=== PATIENT | male | born 1965 | race Caucasian/White ===

== ENCOUNTER → 2024-11-13 | Day surgery (SDC) | payer BC ==
[~2024-11-13] MED LIST: ACETAMINOPHEN TAB 325 MG TAB PO PRN; HYDROcodone/APAP 5-325MG 1 EACH TAB PO PRN; KETOROLAC 15 MG/ML 1 ML VIAL ONE; LIDOCAINE 1% INJ 10MG/ML (20 ML MDV) ONE; MIDAZOLAM 2 MG/2 ML VIAL ONE; NALOXONE 0.4 MG/ML 1 ML VIAL IV PRN; PROPOFOL 10 MG/ML 20 ML VIAL IV ONE; Pre Op ABX Message 1 EACH MISC MISCELLANE ONE; SUCCINYLCHOLINE CHLORIDE 200 MG/10 ML VIAL IV ONE; fentaNYL (PF) 50 MCG/ML 2 ML AMP ONE
--- NOTE | 2024-11-13 12:22 | P.GSHP ---
History of Present Illness H&P Date: 11/13/24 Chief Complaint: Back and arm lipoma 58-year-old male here for elective excision right back and right arm lipoma. Patient last seen in the office June of last year. Has had a mass in the right upper back for the last 7 years or so. Increasing in size. Mild soreness at ti mes. No overlying skin changes. Patient also has a smaller mass in the right arm region. Past Medical History Past Medical History: Cancer, Diabetes Mellitus, Hyperlipidemia, Hypertension Additional Past Medical History / Comment(s): Type 2 diab., hx. skin cancer History of Any Multi-Drug Resistant Organisms: None Reported Additional Past Surgical History / Comment(s): cancer removed from tip of left middle finger, cyst removed from scrotum, cyst removed from neck Past Anesthesia/Blood Transfusion Reactions: No Reported Reaction Smoking Status: Never smoker - Past Family History Mother Family Medical History: No Reported History Medications and Allergies Home Medications Medication Instructions Recorded Confirmed Type Aspirin 81 mg PO 0900 11/12/24 11/12/24 History Atorvastatin [Lipitor] 20 mg PO QAM 11/12/24 11/12/24 History Insulin Glargine,Hum.rec.anlog 10 units SQ HS 11/12/24 11/12/24 History [Lantus Solostar Pen] Insulin Regular, Human [NovoLIN R] See Protocol SQ AC-TID 11/12/24 11/12/24 History Metoprolol Tartrate 25 mg PO QAM 11/12/24 11/12/24 History Sildenafil [Revatio] 20 mg PO DIRECTED PRN 11/12/24 11/12/24 History glipiZIDE [Glucotrol] 20 mg PO AC-BID 11/12/24 11/12/24 History lisinopriL [Zestril] 20 mg PO 0900 11/12/24 11/12/24 History metFORMIN HCL [Glucophage] 1,000 mg PO BID 11/12/24 11/12/24 History Allergies Allergy/AdvReac Type Severity Reaction Status Date / Time No Known Allergies Allergy Verified 11/12/24 08:59 Surgical - Exam Physical exam: General: Well-developed, well-nourished HEENT: Normocephalic, sclerae nonicteric Abdomen: Nontender, nondistended Extremities: No edema, right upper back with 10 cm subcutaneous lipomatous mass, right arm with 3 x 3 cm mass Neuro: Alert and oriented Assessment and Plan (1) Lipoma of back Narrative/Plan: Will proceed with surgical excision right upper back and right arm lipomatous masses. Risks of bleeding, infection, scarring, numbness, seroma, recurrence. He understands and wishes to proceed. Current Visit: Yes Status: Acute Code(s): D17.1 - BENIGN LIPOMATOUS NEOPLASM OF SKIN, SUBCU OF TRUNK SNOMED Code(s): 289504031
[2024-11-13 12:46] VITALS: TEMP 96.8
[2024-11-13] MEDS: IV FLUID CONTINUATION 1,000 ML IV ONE (12:52)
[2024-11-13] MEDS: LACTATED RINGERS 1,000 ML IV SCH (13:01)
[2024-11-13] MEDS: ACETAMINOPHEN TAB 500 MG TAB PO PRN (13:02)
[2024-11-13] MEDS: ONDANSETRON 4 MG/2 ML VIAL IVP STA (13:03)
[2024-11-13] MEDS: HEPARIN SODIUM,PORCINE 5,000 UNIT/ML 1 ML VIAL SQ PRN (13:04)
[2024-11-13 13:06] LABS: Glucose,Whole Blood 291 mg/dL (70-110)
[2024-11-13] MEDS: BUPIVACAINE (PF) 0.25% 30 ML VIAL SQ ONE (14:12)
[2024-11-13 14:58] LABS: Glucose,Whole Blood 253 mg/dL (70-110)
[2024-11-13] MEDS: INSULIN ASPART (NovoLOG) 100 UNIT/ML VIAL SQ ONE (15:04)
--- NOTE | 2024-11-13 15:06 | P.OP ---
Date of Procedure: 11/13/24 Procedure(s) Performed: PREOPERATIVE DIAGNOSIS: Right back lipoma, right upper arm lipoma POSTOPERATIVE DIAGNOSIS: Same PROCEDURE: Excision right upper back and right brachial lipoma with intermediate closure SURGEON: Yamil EBL: Pastora mcfarland ANESTHESIA: General COMPLICATIONS: None OPERATIVE PROCEDURE: Patient placed in the left cubitus position. The patient's right upper back and posterior right brachial region prepped and draped sterilely. The back lipoma was first addressed. An oblique incision was made a long Langerhans lines overlying the palpable mass. The patient's mass was deep to the fascia of the latissimus. There was an area of the latissimus which was thinned out by this large lipomatous mass. We were able to dissect in that area without dividing much muscle at all. The dissection took place primarily using blunt dissection but some electrocautery was utilized. The mass was fully exci sed as 1 piece. There were no areas that were densely adherent to any of the structures. This past measured 10 x 7 x 5 cm. Fascial layer closed using a running 3-0 Vicryl stitch. Subcutaneous layer closed using 3-0 Vicryl sutures. Skin closed using running 4-0 Monocryl subcuticular stitch. Sterile dressings were applied. Next the right posterior brachial lipomatous mass was noted. A longitudinal incision was made overlying this palpable mass. The mass was dissected using both blunt dissection and cautery. This also surprisingly penetrated through the fascia. This was fully excised measuring 2.2 x 1.5 cm. Subcutaneous layers again closed here using 3-0 Vicryl sutures and the skin using 4-0 Monocryl sutures. Skin glue and sterile dosings applied. Length of intermediate closure 10 cm. DISPOSITION: Stable to recovery room
[2024-11-13 15:35] VITALS: RESP 14
[2024-11-13 15:44] VITALS: BP 133/82; PULSE 64
[2024-11-13 15:55] LABS: Glucose,Whole Blood 298 mg/dL (70-110)
== END ==
LOC: OR 11:28
PROVIDERS: ATTEND Surgery
DX: D17.1 Benign lipomatous neoplasm of skin and subcutaneous tissue of trunk (principal); D17.21 Benign lipomatous neoplasm of skin and subcutaneous tissue of right arm; E78.5 Hyperlipidemia, unspecified; I10 Essential (primary) hypertension; E11.9 Type 2 diabetes mellitus without complications; Z85.828 Personal history of other malignant neoplasm of skin; Z79.4 Long term (current) use of insulin; Z79.84 Long term (current) use of oral hypoglycemic drugs; Z79.82 Long term (current) use of aspirin; Z79.02 Long term (current) use of antithrombotics/antiplatelets; Z79.899 Other long term (current) drug therapy
CPT/HCPCS: 88304; 21931; 24075; J2250; J0330; J1644; J2405; J2003; J3010; J1885; J2704